=== PATIENT | male | born 1970 | race Two or more races ===

== ENCOUNTER 2019-03-12 16:46 | Emergency (ER) | payer OTHER ==
[~2019-03-12] VITALS: Ht 170.2 cm; Wt 70.3 kg
[2019-03-12] MEDS ORDERED: SODIUM CHLORIDE 0.9% 1,000 ML IV ONE (18:28)
[2019-03-12 19:02] LABS: Basophils # (auto) 0 uL; Basophils % (auto) 0.5 % (0.0-2.0); Eosinophils # (auto) 0.1 uL; Eosinophils % (auto) 0.7 % (0.0-7.0); Hematocrit 45.3 % (41.0-53.0); Hemoglobin 15.6 g/dL (13.5-17.5); Lymphocytes # (auto) 1.9 uL; Lymphocytes % (auto) 23.6 % (10.0-50.0); Mean Corpuscular Hemoglobin 31.5 pg (28.0-32.0); Mean Corpuscular Hgb Conc. 34.4 g/dL (32.0-36.0); Mean Corpuscular Volume 91.6 fL (80.0-100.0); Monocytes # (auto) 0.7 uL; Monocytes % (auto) 8.8 % (0.0-12.0); Neutrophils # (auto) 5.3 uL; Neutrophils % (auto) 66.4 % (37.0-80.0); Nucleated Red Blood Cells % 0.1 %; Platelet Count (auto) 211 10^3/uL (140-450); Red Blood Cells 4.95 10^6/uL (4.5-5.90); Red Cell Distribution Width 13.6 % (11.8-14.3); White Blood Cell 7.9 10^3/uL (4.4-10.8)
[2019-03-12 19:17] LABS: Alanine Aminotransferase 23 U/L (16-61); Anion Gap 5 (5-15); Aspartate Aminotransferase 19 U/L (15-37); BUN/Creatinine Ratio 7.1; Blood Urea Nitrogen 10 mg/dL (7-18); Calcium 8.5 mg/dL (8.5-10.1); Carbon Dioxide 26 mmol/L (21-32); Chloride 109 mmol/L (98-107); GFR African American 70 mL/min; GFR Non-African American 58 mL/min; Glucose 117 mg/dL (74-106); Potassium 4.1 mmol/L (3.5-5.1); Sodium 140 mmol/L (136-145)
[2019-03-12 19:21] LABS: Alkaline Phosphatase 85 U/L (45-117); Bilirubin, Total 0.5 mg/dL (0.2-1.0); Total Protein 7.5 g/dL (6.4-8.2)
[2019-03-12] MEDS ORDERED: HYDROcodone-ACET 5/325MG TAB PO ONE (21:15)
[2019-03-12 21:25] VITALS: BP 135/75
== END 2019-03-12 21:45 | disposition home or self-care (01) ==
LOC: ER 16:46
DX: R42 Dizziness and giddiness (principal); F41.9 Anxiety disorder, unspecified; Z88.8 Allergy status to other drugs, medicaments and biological substances
CPT/HCPCS: 36415; 70450; 71045; 80053; 84484; 85025; 96360; 96361; 99284; J7030

== ENCOUNTER 2019-09-19 13:01 | Emergency (ER) | payer OTHER ==
[~2019-09-19] VITALS: Ht 170.2 cm; Wt 70.3 kg
[2019-09-19 13:21] VITALS: BP 128/76
[2019-09-19] MEDS ORDERED: KETOROLAC TROMETH 60MG/2ML VIAL IM ONE (13:45)
== END 2019-09-19 14:18 | disposition home or self-care (01) ==
LOC: ER 13:01
DX: G44.209 Tension-type headache, unspecified, not intractable (principal)
CPT/HCPCS: 70450; 96372; 99284; J1885

== ENCOUNTER → 2019-11-26 | Emergency (ER) | payer OTHER ==
[~2019-11-26] VITALS: Ht 170.2 cm; Wt 70.3 kg
[~2019-11-26] MED LIST: HYDROcodone-ACET 10/325MG TAB PO ONE
[2019-11-26 15:35] LABS: Basophils # (auto) 0 10 ^3/uL (0-0.2); Basophils % (auto) 0.3 % (0.0-2.0); Eosinophils # (auto) 0 10 ^3/uL (0-0.8); Eosinophils % (auto) 0.7 % (0.0-7.0); Hematocrit 44.7 % (41.0-53.0); Hemoglobin 14.8 g/dL (13.5-17.5); Lymphocytes # (auto) 1.9 10 ^3/uL (0.4-5.4); Lymphocytes % (auto) 30.8 % (10.0-50.0); Mean Corpuscular Hgb Conc. 33.1 g/dL (32.0-36.0); Mean Corpuscular Volume 96.6 fL (80.0-100.0); Monocytes # (auto) 0.6 10 ^3/uL (0-1.3); Neutrophils # (auto) 3.7 10 ^3/uL (1.6-8.6); Neutrophils % (auto) 58.2 % (37.0-80.0); Nucleated Red Blood Cells % 0.2 %; Platelet Count (auto) 234 10^3/uL (140-450); Red Blood Cells 4.62 10^6/uL (4.5-5.90); Red Cell Distribution Width 13.6 % (11.8-14.3); White Blood Cell 6.3 10^3/uL (4.4-10.8)
[2019-11-26 15:53] LABS: Albumin 4.1 g/dL (3.4-5.0); Calcium 8.7 mg/dL (8.5-10.1); Potassium 4.8 mmol/L (3.5-5.1)
[2019-11-26 15:56] LABS: Urine Bacteria NONE SEEN /hpf (None Seen); Urine Blood Negative /uL (Negative); Urine Specific Gravity 1.006 (1.001-1.035); Urine WBC <1 /hpf (0 - 3)
[2019-11-26 15:57] LABS: BUN/Creatinine Ratio 8.1; Bilirubin, Total 0.9 mg/dL (0.2-1.0); Total Protein 7.8 g/dL (6.4-8.2)
[2019-11-26 19:12] VITALS: BP 106/78
== END | disposition home or self-care (01) ==
LOC: ER 14:09
DX: M54.5 Low back pain (principal); G89.29 Other chronic pain
CPT/HCPCS: 36415; 72131; 80053; 81001; 85025

== ENCOUNTER 2020-04-04 14:28 | Inpatient (IN) | payer OTHER ==
[~2020-04-04] VITALS: Ht 170.2 cm; Wt 73.2 kg
[2020-04-04] MEDS ORDERED: ASCORBIC ACID 500 MG TAB PO ONE (17:15)
[2020-04-04] MEDS ORDERED: AZITHROMYCIN 500MG/ 250ML 250 ML IV ONE (17:15)
[2020-04-04] MEDS ORDERED: SODIUM CHLORIDE 0.9% 1,000 ML IVB ONE (17:15)
[2020-04-04] MEDS ORDERED: ZINC SULFATE 220mg CAP or TAB PO ONE (17:15)
[2020-04-04 18:29] LABS: Basophils # (auto) 0 10 ^3/uL (0-0.2); Basophils % (auto) 0.4 % (0.0-2.0); Eosinophils # (auto) 0 10 ^3/uL (0-0.8); Eosinophils % (auto) 0.4 % (0.0-7.0); Hematocrit 39.7 % (41.0-53.0); Hemoglobin 14.1 g/dL (13.5-17.5); Lymphocytes % (auto) 19.5 % (10.0-50.0); Mean Corpuscular Hemoglobin 32.6 pg (28.0-32.0); Mean Corpuscular Hgb Conc. 35.4 g/dL (32.0-36.0); Mean Corpuscular Volume 92.1 fL (80.0-100.0); Monocytes # (auto) 0.4 10 ^3/uL (0-1.3); Monocytes % (auto) 8.1 % (0.0-12.0); Neutrophils # (auto) 3.7 10 ^3/uL (1.6-8.6); Neutrophils % (auto) 71.6 % (37.0-80.0); Nucleated Red Blood Cells % 0.1 %; Platelet Count (auto) 198 10^3/uL (140-450); Red Cell Distribution Width 12.6 % (11.8-14.3); White Blood Cell 5.2 10^3/uL (4.4-10.8)
[2020-04-04 18:48] LABS: Albumin 3.6 g/dL (3.4-5.0); Calcium 8.1 mg/dL (8.5-10.1); Magnesium 2.3 mg/dL (1.6-2.6)
[2020-04-04 18:49] LABS: INR 1.06 (0.9-1.15); Partial Thromboplastin Time 29.9 sec (23.0-31.2)
[2020-04-04 18:51] LABS: BUN/Creatinine Ratio 9.2; Bilirubin, Total 0.4 mg/dL (0.2-1.0); Total Protein 7.5 g/dL (6.4-8.2)
[2020-04-04 19:04] LABS: Urine Bacteria NONE SEEN /hpf (None Seen); Urine Blood Negative /uL (Negative); Urine Mucus FEW (None Seen); Urine Specific Gravity 1.029 (1.001-1.035); Urine WBC 1 /hpf (0 - 3)
[2020-04-04] MEDS ORDERED: LORazepam 2MG/ML-1ML VIAL IV PRN (21:45)
[2020-04-04] MEDS ORDERED: MORPHINE SULF INJ 2 MG/ML SYRINGE 1ML IV PRN (21:45)
[2020-04-04] MEDS ORDERED: ACETAMINOPHEN 500 MG TAB PO PRN (21:45)
[2020-04-04] MEDS ORDERED: NITROGLYCERIN 0.4 MG SL TAB SL PRN (21:45)
--- NOTE | 2020-04-04 22:03 | NUR ---
Respiratory note: RESP MED HELD AT THIS TIME, PHARMACY NO LONGER HERE. ASSESSED PT AT THIS TIME, NO RESP DISTRESS NOTED. PULSE OX 97% ON RA, HR 116, RR 20.
[2020-04-04] MEDS: BUDESONIDE (INHALATION) 180 MCG IH IN SCH (22:37)
[2020-04-04] MEDS: ALBUTEROL SULF HFA 90MCG INH 200DOSE IN SCH (22:37)
[2020-04-04] MEDS: FAMOTIDINE 20 MG TAB PO SCH (22:51)
[2020-04-04] MEDS: DexAMETHasone SOD PHOS 10MG/1ML VIAL INJ IV SCH (22:52)
[2020-04-04] MEDS: DOXYCYCLINE 100MG/250ML 250 ML IV SCH (22:52)
[2020-04-04] MEDS ORDERED: ZOLP10TA PO (23:08)
[2020-04-04] MEDS ORDERED: EMTRTAB7 PO (23:08)
[2020-04-04] MEDS ORDERED: DOLU50TA OR (23:08)
--- NOTE | 2020-04-05 02:25 | NUR ---
MS admit from ER EDWARD GONZALEZ admitted to tele after SBAR received. Patient oriented to INDIRA LOCKETT, RN primary RN, unit, room, bed, and unit policies regarding patient care and visiting hours. Patient is awake, alert, and oriented X 4. No s/s of respiratory distress. Patient denies pain at this time. Bed in lowest locked position, side rails up x 2, call light is within reach. Patient weighed by bed scale and encouraged to call for assistance as needed. All questions and concerns addressed, patient verbalized understanding.
[2020-04-05 03:26] VITALS: BP 110/75
[2020-04-05] MEDS ORDERED: LORA1TAB23 PO (04:24)
[2020-04-05] MEDS ORDERED: INFLUENZA QUAD 2020-2021 0.5 ML SYRG IM ONE (04:30)
[2020-04-05 05:00] VITALS: BP 107/70
[2020-04-05] MEDS: ALBUTEROL SULF HFA 90MCG INH 200DOSE IN SCH (06:00)
--- NOTE | 2020-04-05 07:22 | NUR ---
Diet order received from Dr Davis
[2020-04-05 07:38] LABS: Basophils # (auto) 0 10 ^3/uL (0-0.2); Basophils % (auto) 0.1 % (0.0-2.0); Eosinophils # (auto) 0 10 ^3/uL (0-0.8); Hematocrit 37.7 % (41.0-53.0); Hemoglobin 12.9 g/dL (13.5-17.5); Lymphocytes # (auto) 0.8 10 ^3/uL (0.4-5.4); Lymphocytes % (auto) 20.7 % (10.0-50.0); Mean Corpuscular Hemoglobin 31.4 pg (28.0-32.0); Mean Corpuscular Hgb Conc. 34.2 g/dL (32.0-36.0); Mean Corpuscular Volume 91.6 fL (80.0-100.0); Monocytes # (auto) 0.2 10 ^3/uL (0-1.3); Monocytes % (auto) 5.9 % (0.0-12.0); Neutrophils # (auto) 2.8 10 ^3/uL (1.6-8.6); Neutrophils % (auto) 73.3 % (37.0-80.0); Nucleated Red Blood Cells % 0.1 %; Platelet Count (auto) 214 10^3/uL (140-450); Red Blood Cells 4.11 10^6/uL (4.5-5.90); Red Cell Distribution Width 12.9 % (11.8-14.3); White Blood Cell 3.8 10^3/uL (4.4-10.8)
[2020-04-05 07:40] LABS: Potassium 4.3 mmol/L (3.5-5.1)
[2020-04-05 07:57] LABS: Albumin 3.3 g/dL (3.4-5.0); BUN/Creatinine Ratio 8.6; Bilirubin, Total 0.4 mg/dL (0.2-1.0); Calcium 8.5 mg/dL (8.5-10.1); Total Protein 7.1 g/dL (6.4-8.2)
[2020-04-05 08:00] VITALS: BP 109/65
[2020-04-05 09:00] VITALS: BP 109/65
[2020-04-05] MEDS: DOXYCYCLINE 100MG/250ML 250 ML IV SCH (09:25)
[2020-04-05] MEDS: DexAMETHasone SOD PHOS 10MG/1ML VIAL INJ IV SCH (09:25)
[2020-04-05] MEDS: FAMOTIDINE 20 MG TAB PO SCH (09:26)
[2020-04-05] MEDS ORDERED: MULTIPLE VITAMIN TAB PO SCH (10:00)
[2020-04-05] MEDS ORDERED: ZINC SULFATE 220mg CAP or TAB PO SCH (10:00)
[2020-04-05] MEDS: BUDESONIDE (INHALATION) 180 MCG IH IN SCH (10:00)
[2020-04-05] MEDS ORDERED: ENOXAPARIN SOD 40 MG/0.4 ML SYRINGE SC SCH (10:00)
[2020-04-05] MEDS ORDERED: ASCORBIC ACID 1,000 MG TAB PO SCH (10:00)
[2020-04-05] MEDS ORDERED: CHOLECALCIFEROL (VITD3) 2,000 UNIT CAP PO SCH (10:00)
[2020-04-05] MEDS ORDERED: ASCO10003 PO (12:48)
[2020-04-05] MEDS ORDERED: DOXY-286 PO (12:48)
--- NOTE | 2020-04-05 12:55 | NUR ---
Dr Flores bedside with patient discussing plan of care
[2020-04-05 13:00] VITALS: BP 115/73
[2020-04-05 13:22] VITALS: BP 115/73
--- NOTE | 2020-04-05 15:15 | NUR ---
Discharge instructions given as ordered. Encourage to follow up with PMD as instructed. Due to weekend, office was closed, patient to schedule appointment with PCP, phone # and address provided. All questions and concerns addressed. Patient verbalized understanding. Medication reconciliation form completed and copy given to patient. No home medications being held in Pharmacy, and no needed vaccines given, patient declined. IV removed with catheter intact and pressure dressing applied. Telemetry unit returned to ICU. Patient taken to vehicle via wheelchair with all personal belongings, accompanied by staff and family member. No distress noted at time of departure.
== END 2020-04-05 15:15 | disposition home or self-care (01) | DRG 894 ==
LOC: ER 14:28 → TELE 21:39 → TELE-EAST 04-05 04:25
PROVIDERS: ADMIT Nurse Practitioner Family; ATTEND Internal Medicine Pulmonary Disease
DX: U07.1 COVID-19 (principal); J12.89 Other viral pneumonia; F41.9 Anxiety disorder, unspecified; Z82.49 Family history of ischemic heart disease and other diseases of the circulatory system; Z88.4 Allergy status to anesthetic agent; B20 Human immunodeficiency virus [HIV] disease
CPT/HCPCS: 36415; 71045; 80053; 81001; 83036; 83605; 83735; 85025; 85379; 85610; 85730; 87040; 87426; G0378; J1100; J3490

== ENCOUNTER 2020-04-12 12:11 | Inpatient (IN) | payer OTHER ==
[~2020-04-12] VITALS: Ht 177.8 cm; Wt 72.6 kg
[~2020-04-12 12:11] MED LIST changes: +ASCO10003 PO; +DOLU50TA OR; +DOXY-286 PO; +EMTRTAB7 PO; -HYDROcodone-ACET 10/325MG TAB PO ONE; +LORA1TAB23 PO; +ZOLP10TA PO
[2020-04-12] MEDS ORDERED: SODIUM CHLORIDE 0.9% 1,000 ML IV ONE (12:45)
[2020-04-12] MEDS ORDERED: methylPREDNISolone SOD SUCC 125 MG/2 ML VL IV ONE (12:45)
[2020-04-12 13:56] LABS: BUN/Creatinine Ratio 11.2; Calcium 8.5 mg/dL (8.5-10.1); Potassium 3.7 mmol/L (3.5-5.1)
[2020-04-12 14:00] LABS: Basophils # (auto) 0 10 ^3/uL (0-0.2); Basophils % (auto) 0.4 % (0.0-2.0); Eosinophils # (auto) 0 10 ^3/uL (0-0.8); Eosinophils % (auto) 0.8 % (0.0-7.0); Hematocrit 38.5 % (41.0-53.0); Hemoglobin 13.3 g/dL (13.5-17.5); Lymphocytes # (auto) 1.3 10 ^3/uL (0.4-5.4); Lymphocytes % (auto) 26.9 % (10.0-50.0); Mean Corpuscular Hemoglobin 31.5 pg (28.0-32.0); Mean Corpuscular Hgb Conc. 34.4 g/dL (32.0-36.0); Mean Corpuscular Volume 91.5 fL (80.0-100.0); Monocytes # (auto) 0.5 10 ^3/uL (0-1.3); Monocytes % (auto) 9.8 % (0.0-12.0); Neutrophils # (auto) 2.9 10 ^3/uL (1.6-8.6); Neutrophils % (auto) 62.1 % (37.0-80.0); Nucleated Red Blood Cells % 0.2 %; Platelet Count (auto) 309 10^3/uL (140-450); Red Blood Cells 4.21 10^6/uL (4.5-5.90); Red Cell Distribution Width 12.6 % (11.8-14.3); White Blood Cell 4.7 10^3/uL (4.4-10.8)
[2020-04-12 14:09] LABS: Bilirubin, Total 0.6 mg/dL (0.2-1.0); CRP High Sensitivity 4.51 mg/dL (< 0.3); Total Protein 7.7 g/dL (6.4-8.2)
[2020-04-12] MEDS ORDERED: ALUM & MAG HYDROX-SIMETH LIQ(MAALOX) 30 ML PO PRN (15:30)
[2020-04-12] MEDS ORDERED: DOCUSATE SOD 100 MG CAP PO PRN (15:30)
[2020-04-12] MEDS ORDERED: ONDANSETRON HCL 4 MG/2 ML VIAL IV PRN (15:30)
[2020-04-12] MEDS ORDERED: TEMAZEPAM 15 MG CAP PO PRN (15:30)
[2020-04-12] MEDS ORDERED: LORazepam 0.5 MG TAB PO PRN (15:30)
[2020-04-12] MEDS ORDERED: MORPHINE SULF INJ 2 MG/ML SYRINGE 1ML IV PRN (15:30)
[2020-04-12] MEDS ORDERED: ACETAMINOPHEN 500 MG TAB PO PRN (15:30)
[2020-04-12] MEDS: HYDROcodone-ACET 5/325MG TAB PO PRN (17:17)
[2020-04-12] MEDS: ALBUTEROL SULF HFA 90MCG INH 200DOSE IN SCH (22:12)
[2020-04-12] MEDS: DOXYCYCLINE 100 MG TAB/CAP PO SCH (22:48)
[2020-04-13 04:00] VITALS: BP 105/69
[2020-04-13 06:55] LABS: Basophils # (auto) 0 10 ^3/uL (0-0.2); Basophils % (auto) 0.1 % (0.0-2.0); Eosinophils # (auto) 0 10 ^3/uL (0-0.8); Hemoglobin 11.8 g/dL (13.5-17.5); Lymphocytes # (auto) 0.7 10 ^3/uL (0.4-5.4); Lymphocytes % (auto) 14.9 % (10.0-50.0); Mean Corpuscular Hemoglobin 30.8 pg (28.0-32.0); Mean Corpuscular Hgb Conc. 33.8 g/dL (32.0-36.0); Mean Corpuscular Volume 91.1 fL (80.0-100.0); Monocytes # (auto) 0.3 10 ^3/uL (0-1.3); Monocytes % (auto) 6.3 % (0.0-12.0); Neutrophils # (auto) 3.9 10 ^3/uL (1.6-8.6); Neutrophils % (auto) 78.7 % (37.0-80.0); Nucleated Red Blood Cells % 0.1 %; Platelet Count (auto) 289 10^3/uL (140-450); Red Blood Cells 3.84 10^6/uL (4.5-5.90); Red Cell Distribution Width 12.5 % (11.8-14.3)
[2020-04-13 07:16] LABS: Potassium 3.9 mmol/L (3.5-5.1)
[2020-04-13 07:22] LABS: Albumin 2.6 g/dL (3.4-5.0); BUN/Creatinine Ratio 14.9; Bilirubin, Total 0.4 mg/dL (0.2-1.0); Calcium 8.5 mg/dL (8.5-10.1); Total Protein 6.6 g/dL (6.4-8.2)
[2020-04-13] MEDS: ALBUTEROL SULF HFA 90MCG INH 200DOSE IN SCH ×3 (07:37→22:29)
[2020-04-13] MEDS ORDERED: EMTRICITABINE-TENOFOVIR 200/300MG(TRUVADA) PO SCH (10:00)
[2020-04-13] MEDS: ASCORBIC ACID 1,000 MG TAB PO SCH (10:11)
[2020-04-13] MEDS: ENOXAPARIN SOD 40 MG/0.4 ML SYRINGE SC SCH (10:11)
[2020-04-13] MEDS: DOXYCYCLINE 100 MG TAB/CAP PO SCH ×2 (10:11→21:31)
[2020-04-13] MEDS: ZINC SULFATE 220mg CAP or TAB PO SCH (10:11)
[2020-04-13] MEDS: HYDROcodone-ACET 5/325MG TAB PO PRN ×2 (11:25→17:17)
[2020-04-13] MEDS ORDERED: CHOLECALCIFEROL (VITD3) 2,000 UNIT CAP PO ONE (15:45)
[2020-04-13] MEDS ORDERED: BUDESONIDE (INHALATION) 0.5 MG/2 ML NEB NEB ONE (15:45)
[2020-04-13] MEDS ORDERED: DexAMETHasone SOD PHOS 10MG/1ML VIAL INJ IV ONE (15:45)
[2020-04-13] MEDS: BUDESONIDE (INHALATION) 180 MCG IH IN SCH (22:00)
[2020-04-13] MEDS ORDERED: BUDESONIDE (INHALATION) 0.5 MG/2 ML NEB NEB SCH (22:00)
[2020-04-14] MEDS: ALBUTEROL SULF HFA 90MCG INH 200DOSE IN SCH ×2 (06:00→14:40)
[2020-04-14 07:16] LABS: Basophils # (auto) 0.1 10 ^3/uL (0-0.2); Basophils % (auto) 1.4 % (0.0-2.0); Eosinophils # (auto) 0 10 ^3/uL (0-0.8); Hematocrit 36.9 % (41.0-53.0); Hemoglobin 12.7 g/dL (13.5-17.5); Lymphocytes # (auto) 0.9 10 ^3/uL (0.4-5.4); Lymphocytes % (auto) 16.9 % (10.0-50.0); Mean Corpuscular Hemoglobin 31.1 pg (28.0-32.0); Mean Corpuscular Hgb Conc. 34.3 g/dL (32.0-36.0); Mean Corpuscular Volume 90.7 fL (80.0-100.0); Monocytes # (auto) 0.4 10 ^3/uL (0-1.3); Monocytes % (auto) 6.5 % (0.0-12.0); Neutrophils # (auto) 4.2 10 ^3/uL (1.6-8.6); Neutrophils % (auto) 75.2 % (37.0-80.0); Nucleated Red Blood Cells % 0.1 %; Platelet Count (auto) 351 10^3/uL (140-450); Red Blood Cells 4.07 10^6/uL (4.5-5.90); Red Cell Distribution Width 12.8 % (11.8-14.3); White Blood Cell 5.6 10^3/uL (4.4-10.8)
[2020-04-14 07:59] LABS: BUN/Creatinine Ratio 15.5; Calcium 8.3 mg/dL (8.5-10.1); Potassium 3.9 mmol/L (3.5-5.1)
[2020-04-14] MEDS: BUDESONIDE (INHALATION) 180 MCG IH IN SCH (09:46)
[2020-04-14] MEDS ORDERED: CHOLECALCIFEROL (VITD3) 2,000 UNIT CAP PO SCH (10:00)
[2020-04-14] MEDS: ASCORBIC ACID 1,000 MG TAB PO SCH (10:00)
[2020-04-14] MEDS ORDERED: DexAMETHasone SOD PHOS 10MG/1ML VIAL INJ IV SCH (10:00)
[2020-04-14] MEDS: DOXYCYCLINE 100 MG TAB/CAP PO SCH (10:45)
[2020-04-14] MEDS: ZINC SULFATE 220mg CAP or TAB PO SCH (10:45)
[2020-04-14] MEDS: ENOXAPARIN SOD 40 MG/0.4 ML SYRINGE SC SCH (10:46)
[2020-04-14] MEDS: HYDROcodone-ACET 5/325MG TAB PO PRN (12:49)
[2020-04-14 14:54] VITALS: BP 121/79
== END 2020-04-14 15:40 | disposition home or self-care (01) | DRG 720 ==
LOC: ER 12:11 → TELE 15:30
PROVIDERS: ADMIT Hospitalist; ATTEND Internal Medicine
DX: A41.89 Other specified sepsis (principal); U07.1 COVID-19; J12.89 Other viral pneumonia; F41.9 Anxiety disorder, unspecified; J98.11 Atelectasis; Z80.9 Family history of malignant neoplasm, unspecified; Z82.49 Family history of ischemic heart disease and other diseases of the circulatory system; Z88.8 Allergy status to other drugs, medicaments and biological substances; Z21 Asymptomatic human immunodeficiency virus [HIV] infection status
CPT/HCPCS: 36415; 71045; 80048; 80053; 82728; 83615; 83735; 85025; 85379; 86141; 94640; 96361; 96374; G0378; J1100

== ENCOUNTER 2020-07-27 12:52 | Emergency (ER) | payer OTHER ==
[~2020-07-27] VITALS: Ht 170.2 cm; Wt 72.6 kg
[2020-07-27 13:52] LABS: Basophils # (auto) 0 10 ^3/uL (0-0.2); Basophils % (auto) 0.4 % (0.0-2.0); Eosinophils # (auto) 0 10 ^3/uL (0-0.8); Eosinophils % (auto) 1.1 % (0.0-7.0); Hematocrit 45.1 % (41.0-53.0); Hemoglobin 15.1 g/dL (13.5-17.5); Lymphocytes # (auto) 1.6 10 ^3/uL (0.4-5.4); Lymphocytes % (auto) 38.1 % (10.0-50.0); Mean Corpuscular Hemoglobin 30.1 pg (28.0-32.0); Mean Corpuscular Hgb Conc. 33.6 g/dL (32.0-36.0); Mean Corpuscular Volume 89.6 fL (80.0-100.0); Monocytes # (auto) 0.5 10 ^3/uL (0-1.3); Monocytes % (auto) 11.3 % (0.0-12.0); Neutrophils # (auto) 2.1 10 ^3/uL (1.6-8.6); Neutrophils % (auto) 49.1 % (37.0-80.0); Nucleated Red Blood Cells % 0.3 %; Platelet Count (auto) 197 10^3/uL (140-450); Red Blood Cells 5.03 10^6/uL (4.5-5.90); Red Cell Distribution Width 13.6 % (11.8-14.3); White Blood Cell 4.2 10^3/uL (4.4-10.8)
[2020-07-27 13:56] LABS: Urine WBC None Seen /hpf (0 - 3)
[2020-07-27 14:11] LABS: Chloride 109 mmol/L (98-107); Potassium 3.7 mmol/L (3.5-5.1); Sodium 138 mmol/L (136-145)
[2020-07-27 14:12] LABS: Urine Bacteria NONE SEEN /hpf (None Seen); Urine Blood Negative /uL (Negative); Urine Specific Gravity 1.002 (1.001-1.035)
[2020-07-27 14:15] LABS: Alanine Aminotransferase 30 U/L (16-61); Albumin 3.7 g/dL (3.4-5.0); Anion Gap 5 (5-15); Aspartate Aminotransferase 26 U/L (15-37); BUN/Creatinine Ratio 7.3; Blood Urea Nitrogen 9 mg/dL (7-18); Carbon Dioxide 24 mmol/L (21-32); GFR African American 81 mL/min; GFR Non-African American 67 mL/min; Glucose 90 mg/dL (74-106); Magnesium 2.4 mg/dL (1.6-2.6)
[2020-07-27 14:30] LABS: Alkaline Phosphatase 79 U/L (45-117); Bilirubin, Total 0.6 mg/dL (0.2-1.0); Total Protein 7.3 g/dL (6.4-8.2)
[2020-07-27 15:35] VITALS: BP 128/75
== END 2020-07-27 15:59 | disposition home or self-care (01) ==
LOC: ER 12:52
DX: R53.1 Weakness (principal); R53.83 Other fatigue; R07.89 Other chest pain; R42 Dizziness and giddiness; Z20.822 Contact with and (suspected) exposure to COVID-19; Z79.899 Other long term (current) drug therapy; Z88.4 Allergy status to anesthetic agent
CPT/HCPCS: 36415; 70450; 71046; 80053; 81001; 83735; 84484; 85025; 85379; 87426; 93005; 99285; C9803; U0003